=== PATIENT | male | born 1995 | race Caucasian/White ===

== ENCOUNTER 2017-03-18 17:24 | Emergency (ER) | payer BC ==
[2017-03-18 17:37] VITALS: BP 105/65
--- NOTE | 2017-03-18 19:12 | UC ---
Maris Cruz Emily, scribed for Anamika Sawant MD on 03/18/17 at 1854 . Throat Pain/Nasal Alessandro HPI - HPI Summary HPI Summary: This patient is a 22 year old M presenting to urgent care with a chief complaint of sore throat that began this morning. The CC is described as an ache. The patient rates the pain 3/10 in severity. Patient reports general aches and fever. Patient denies chills, sinus pressure, ear pain, nausea, and vomiting. Pt reports sick contacts with sore throat. Pt with h/o recurrent strep. No analgesia. Patient's medications reviewed this visit. - History of Current Complaint Chief Complaint: UCRespiratory Stated Complaint: SORE THROAT Time Seen by Provider: 03/18/17 18:29 Hx Obtained From: Patient Onset/Duration: Sudden Onset, Lasting Hours, Still Present Severity: Mild Pain Intensity: 3 Pain Scale Used: 0-10 Numeric Associated Signs & Symptoms: Positive: Fever - Allergies/Home Medications Allergies/Adverse Reactions: Allergies Allergy/AdvReac Type Severity Reaction Status Date / Time No Known Allergies Allergy Verified 02/04/15 22:15 Home Medications: Home Medications Multiple Vitamins W/ Minerals [Multivitamin Men] 1 tab PO 03/18/17 [History] PMH/Surg Hx/FS Hx/Imm Hx - Additional Past Medical History Additional PMH: History of frequent strep throat. Previously Healthy: No Other Respiratory History: Negative asthma and COPD - Surgical History Surgical History: Yes Surgery Procedure, Year, and Place: lt knee surgery - Family History Known Family History: Negative: Cardiac Disease, Diabetes - Social History Occupation: Student Lives: With Family Alcohol Use: Weekly Substance Use Type: None Smoking Status (MU): Never Smoked Tobacco Review of Systems Constitutional: Fever, Other - Negative chills ENT: Sore Throat, Other - Negative sinus pressure and ear pain Gastrointestinal: Other - Negative nausea and vomiting Musculoskeletal: Other: - General aches All Other Systems Reviewed And Are Negative: Yes Physical Exam Triage Information Reviewed: Yes Appearance: Well-Appearing, No Pain Distress, Well-Nourished Vital Signs: Initial Vital Signs Temp 99.1 F 03/18/17 17:35 Pulse 67 03/18/17 17:35 Resp 18 03/18/17 17:35 BP 105/65 03/18/17 17:35 Pulse Ox 99 03/18/17 17:35 Eye Exam: Normal Eyes: Positive: Conjunctiva Clear ENT Exam: Normal ENT: Positive: Hearing grossly normal, Pharyngeal erythema - + erythema, no exudate + PND uvula midline, TMs normal Neck exam: Normal Neck: Positive: Supple, Nontender Respiratory Exam: Normal Respiratory: Positive: Chest non-tender, Lungs clear, Normal breath sounds, No respiratory distress, No accessory muscle use Cardiovascular Exam: Normal Cardiovascular: Positive: RRR, No Murmur, Pulses Normal Musculoskeletal Exam: Normal Neurological Exam: Normal Neurological: Positive: Alert Psychological Exam: Normal Psychological: Positive: Normal Response To Family Skin Exam: Normal Throat Pain/Nasal Course/Dx - Course Assessment/Plan: Pt presents with sore throat x 12 hours. Pt with + strep throat. Will start Amox. hydrate. secretion precautions. motrin/apap. gargle - Differential Dx/Diagnosis Provider Diagnoses: strep pharyngitis Discharge - Discharge Plan Condition: Stable Disposition: HOME Patient Education Materials: Strep Throat (ED) Referrals: No Primary Care Phys,NOPCP [Primary Care Provider] - Additional Instructions: - Stay well hydrated. Drink plenty of non-alcoholic, non-caffinated beverages. - Take antibiotics as prescribed until gone - Gargle with warm, salt water 2-3 times a day - Cold beverages may be soothing to your throat - popsicles, apple sauce, jello - After you have been on antibiotics for 2 days - change your toothbrush and your pillowcase. These infections are spread by secretions - do NOT share eating or drinking utensils - clean items you share with other people such as cell phones, computer mouse, TV remote, computer tablets, etc - Alternate ibuprofen (Advil, Motrin) 600mg and Tylenol every 3 hours for pain or fever. Take with food. Do NOT take for more than 4-5 days. Contact your doctor or return with questions or concerns The documentation as recorded by the Maris hernandez Emily accurately reflects the service I personally performed and the decisions made by me, Anamika Sawant MD.
[2017-03-18] MEDS ORDERED: Amoxicillin PO (*) 875 MG TAB PO SCH (21:00)
== END 2017-03-18 19:05 | disposition home or self-care (01) ==
LOC: UCEAST 17:24
DX: J02.0 Streptococcal pharyngitis (principal)
CPT/HCPCS: 87651; 99212; G0463